=== PATIENT | male | born 1995 | race Caucasian/White ===

== ENCOUNTER 2017-12-01 13:00 | Emergency (ER) | payer SELFPAY ==
[~2017-12-01] VITALS: Ht 162.6 cm; Wt 54.4 kg
[2017-12-01 13:08] VITALS: Ht 162.6 cm; Wt 54.4 kg
[2017-12-01 14:32] VITALS: BP 129/75
== END 2017-12-01 14:32 | disposition home or self-care (01) ==
LOC: ED 13:00
DX: F19.10 Other psychoactive substance abuse, uncomplicated (principal); Z88.5 Allergy status to narcotic agent